=== PATIENT | female | born 1945 | race Caucasian/White ===

== ENCOUNTER → 2016-04-01 | Outpatient (CLI) | payer MEDICARE, MEDICAID ==
[~2016-04-01] MED LIST: ALBU18 IN; ASPI81CH43; BENA40TA2; CLON0.3D4 PO; CYCL0.05 EACHEYE; DICY20TA66 PO; DONETAB5 PO; FAMO-12 PO; GABA250S2 PO; GLIP-115 PO; ISO20T PO; METO200T29; MONT10TA34 PO; NAP500T PO; NITR0.4S29 SL; NORT25CA PO; OMEP20TA44; OYST500T48 OR; PANT1INJ3 PO; SIMV-8 PO; TRIA37.575 PO; VERA1TAB10 PO
[2016-04-01 13:29] LABS: Basophils # (auto) 0 uL; DEFINITIVE VIEW TRANSMISSION
[2016-04-01 13:42] LABS: Basophils % (auto) 0.4 % (0.0-2.0); Eosinophils # (auto) 0.3 uL; Eosinophils % (auto) 3.9 % (0.0-7.0); Hematocrit 34.8 % (36.0-46.0); Hemoglobin 10.8 g/dL (12.2-16.2); Lymphocytes # (auto) 2.1 uL; Lymphocytes % (auto) 24.9 % (10.0-50.0); Mean Corpuscular Hemoglobin 23.8 pg (28.0-32.0); Mean Corpuscular Hgb Conc. 31.1 g/dL (32.0-36.0); Mean Corpuscular Volume 76.6 fL (80.0-100.0); Mean Platelet Volume 10.5 fL (7.4-10.4); Monocytes # (auto) 0.6 uL; Monocytes % (auto) 6.7 % (0.0-12.0); Neutrophils # (auto) 5.3 uL; Neutrophils % (auto) 64.1 % (37.0-80.0); Platelet Count (auto) 230 10^3/uL (140-450); White Blood Cell 8.3 10^3/uL (4.4-10.8)
[2016-04-01 13:59] LABS: Albumin 3.4 g/dL (3.4-5.0); BUN/Creatinine Ratio 14.5; Bilirubin, Total 0.3 mg/dL (0.2-1.0); Calcium 9.8 mg/dL (8.5-10.1); Potassium 4.1 mmol/L (3.5-5.1); Total Protein 7.3 g/dL (6.4-8.2)
[2016-04-01 14:01] LABS: Red Cell Distribution Width 22.1 % (11.6-16.0)
[2016-04-01 14:23] LABS: Anisocytosis Slight; Ovalocytes FEW; Platelet Estimate Adequate
== END | disposition home or self-care (01) ==
LOC: LAB 12:54
PROVIDERS: ATTEND Internal Medicine
DX: C18.9 Malignant neoplasm of colon, unspecified (principal)
CPT/HCPCS: 36415; 80053; 82378; 83540; 83550; 83615; 85025; 85049

== ENCOUNTER → 2016-06-20 | Day surgery (SDC) | payer MEDICARE, MEDICAID ==
[2016-06-16 15:08] LABS: Basophils # (auto) 0 uL; Basophils % (auto) 0.5 % (0.0-2.0); DEFINITIVE VIEW TRANSMISSION; Eosinophils # (auto) 0.3 uL; Eosinophils % (auto) 3.1 % (0.0-7.0); Hematocrit 35.7 % (36.0-46.0); Hemoglobin 11.4 g/dL (12.2-16.2); Lymphocytes # (auto) 2.2 uL; Lymphocytes % (auto) 26.4 % (10.0-50.0); Mean Corpuscular Hemoglobin 23.5 pg (28.0-32.0); Mean Corpuscular Volume 73.3 fL (80.0-100.0); Mean Platelet Volume 9.5 fL (7.4-10.4); Monocytes # (auto) 0.6 uL; Monocytes % (auto) 7.6 % (0.0-12.0); Neutrophils # (auto) 5.2 uL; Neutrophils % (auto) 62.4 % (37.0-80.0); Platelet Count (auto) 227 10^3/uL (140-450); Red Cell Distribution Width 18.8 % (11.6-16.0); White Blood Cell 8.3 10^3/uL (4.4-10.8)
[2016-06-16 15:18] LABS: INR 0.99 (0.9-1.15); Partial Thromboplastin Time 29.6 sec (22.64-33.71); Prothrombin Time 10.7 sec (9.37-12.3)
[2016-06-20] MEDS: MIDAZOLAM HCL 5 MG/ML-1ML VIAL ONE ×3 (10:07→10:17)
[2016-06-20] MEDS: fentaNYL CITRATE 100 MCG/2 ML VL ONE ×3 (10:07→10:17)
[2016-06-20 11:05] VITALS: BP 139/73
== END | disposition home or self-care (01) ==
LOC: GI 09:06
PROVIDERS: ATTEND Internal Medicine Gastroenterology
DX: Z12.11 Encounter for screening for malignant neoplasm of colon (principal); K64.8 Other hemorrhoids; Z85.048 Personal history of other malignant neoplasm of rectum, rectosigmoid junction, and anus; I20.9 Angina pectoris, unspecified; I50.9 Heart failure, unspecified; J44.9 Chronic obstructive pulmonary disease, unspecified; J45.909 Unspecified asthma, uncomplicated; Z90.710 Acquired absence of both cervix and uterus; E11.9 Type 2 diabetes mellitus without complications; F41.9 Anxiety disorder, unspecified; B19.10 Unspecified viral hepatitis B without hepatic coma
CPT/HCPCS: 36415; 85025; 85610; 85730; G0105; 45378; 82962; J2250

== ENCOUNTER → 2016-07-28 | Outpatient (CLI) | payer MEDICARE, MEDICAID ==
[2016-07-28 16:35] LABS: Albumin 3.5 g/dL (3.4-5.0); BUN/Creatinine Ratio 15.5; Bilirubin, Total 0.2 mg/dL (0.2-1.0); Calcium 9.3 mg/dL (8.5-10.1); Total Protein 7.4 g/dL (6.4-8.2)
[2016-07-28 16:57] LABS: Basophils # (auto) 0 uL; Basophils % (auto) 0.4 % (0.0-2.0); DEFINITIVE VIEW TRANSMISSION; Eosinophils # (auto) 0.2 uL; Eosinophils % (auto) 2.4 % (0.0-7.0); Hematocrit 38.8 % (36.0-46.0); Hemoglobin 12.4 g/dL (12.2-16.2); Lymphocytes # (auto) 2.5 uL; Mean Corpuscular Hemoglobin 23.9 pg (28.0-32.0); Mean Corpuscular Hgb Conc. 31.9 g/dL (32.0-36.0); Mean Platelet Volume 9.3 fL (7.4-10.4); Monocytes # (auto) 0.6 uL; Neutrophils # (auto) 4.3 uL; Neutrophils % (auto) 56.2 % (37.0-80.0); Platelet Count (auto) 269 10^3/uL (140-450); Red Cell Distribution Width 19.8 % (11.6-16.0); White Blood Cell 7.6 10^3/uL (4.4-10.8)
[2016-07-28 18:08] LABS: Anisocytosis Moderate; Platelet Estimate Adequate
[2016-07-28 18:09] LABS: Hypochromia Slight
[2016-07-28 18:13] LABS: Ovalocytes FEW; Tear Drop Cells FEW
== END | disposition home or self-care (01) ==
LOC: LAB 15:48
PROVIDERS: ATTEND Internal Medicine
DX: C18.9 Malignant neoplasm of colon, unspecified (principal)
CPT/HCPCS: 36415; 80053; 82378; 83540; 83615; 85025

== ENCOUNTER 2018-03-28 11:24 | Emergency (ER) | payer MEDICARE, MEDICAID ==
[~2018-03-28] VITALS: Ht 154.9 cm; Wt 83.9 kg
[~2018-03-28 11:24] MED LIST changes: -BENA40TA2; +BENA40TA7; -METO200T29; +METO200T42; +TRIA37.55 PO; -TRIA37.575 PO
[2018-03-28 12:10] LABS: Basophils # (auto) 0 uL; Eosinophils # (auto) 0.2 uL; Hematocrit 39.1 % (36.0-46.0); Monocytes # (auto) 0.5 uL; Nucleated Red Blood Cells % 0.1 %; Platelet Count (auto) 201 10^3/uL (140-450)
[2018-03-28 12:12] LABS: Basophils % (auto) 0.3 % (0.0-2.0); Eosinophils % (auto) 2.7 % (0.0-7.0); Hemoglobin 12.9 g/dL (12.2-16.2); Lymphocytes # (auto) 1.6 uL; Lymphocytes % (auto) 18.6 % (10.0-50.0); Mean Corpuscular Hemoglobin 25.6 pg (28.0-32.0); Mean Corpuscular Hgb Conc. 32.9 g/dL (32.0-36.0); Mean Corpuscular Volume 77.8 fL (80.0-100.0); Monocytes % (auto) 5.6 % (0.0-12.0); Neutrophils # (auto) 6.2 uL; Neutrophils % (auto) 72.8 % (37.0-80.0); Red Blood Cells 5.03 10^6/uL (4.0-5.20); Red Cell Distribution Width 14.5 % (11.8-14.3); White Blood Cell 8.5 10^3/uL (4.4-10.8)
[2018-03-28 12:46] LABS: Alanine Aminotransferase 18 U/L (13-56); Albumin 3.5 g/dL (3.4-5.0); Anion Gap 7 (5-15); Blood Urea Nitrogen 13 mg/dL (7-18); Calcium 9.2 mg/dL (8.5-10.1); Carbon Dioxide 27 mmol/L (21-32); Chloride 102 mmol/L (98-107); Glucose 193 mg/dL (74-106); Potassium 3.6 mmol/L (3.5-5.1); Sodium 136 mmol/L (136-145)
[2018-03-28 12:51] LABS: Alkaline Phosphatase 78 U/L (45-117); Aspartate Aminotransferase 14 U/L (15-37); BUN/Creatinine Ratio 13.8; Bilirubin, Total 0.3 mg/dL (0.2-1.0); GFR African American 75 mL/min; GFR Non-African American 62 mL/min; Total Protein 7.7 g/dL (6.4-8.2)
[2018-03-28 13:35] LABS: Urine Bacteria FEW /hpf (None Seen); Urine Blood Negative /uL (Negative); Urine WBC 20 /hpf (0 - 5)
[2018-03-28] MEDS ORDERED: DEXTROSE (50%) 50ML SYRG IV ONE (18:30)
[2018-03-28 22:11] VITALS: BP 186/97
== END 2018-03-28 22:36 | disposition home or self-care (01) ==
LOC: ER 11:24
DX: K64.8 Other hemorrhoids (principal); N39.0 Urinary tract infection, site not specified; I25.10 Atherosclerotic heart disease of native coronary artery without angina pectoris; I11.0 Hypertensive heart disease with heart failure; I50.9 Heart failure, unspecified; J44.9 Chronic obstructive pulmonary disease, unspecified; E11.9 Type 2 diabetes mellitus without complications; E78.5 Hyperlipidemia, unspecified; Z79.82 Long term (current) use of aspirin; Z79.899 Other long term (current) drug therapy; Z79.84 Long term (current) use of oral hypoglycemic drugs
CPT/HCPCS: 36415; 74176; 80053; 81001; 82962; 84484; 85025; 94761

== ENCOUNTER → 2018-04-09 | Day surgery (SDC) | payer MEDICARE, MEDICAID ==
[2018-04-05 15:55] LABS: Basophils # (auto) 0 uL; Basophils % (auto) 0.4 % (0.0-2.0); Eosinophils # (auto) 0.2 uL; Hemoglobin 12.1 g/dL (12.2-16.2); Lymphocytes # (auto) 1.5 uL; Lymphocytes % (auto) 21.2 % (10.0-50.0); Monocytes # (auto) 0.5 uL; Neutrophils # (auto) 4.9 uL; Neutrophils % (auto) 68.2 % (37.0-80.0); Red Blood Cells 4.87 10^6/uL (4.0-5.20); White Blood Cell 7.2 10^3/uL (4.4-10.8)
[2018-04-05 15:57] LABS: INR 0.96 (0.9-1.15); Partial Thromboplastin Time 30.8 sec (23.78-33.04); Prothrombin Time 10.3 sec (9.27-12.13)
[2018-04-05 15:59] LABS: Eosinophils % (auto) 3.3 % (0.0-7.0); Hematocrit 37.8 % (36.0-46.0); Mean Corpuscular Hemoglobin 24.8 pg (28.0-32.0); Mean Corpuscular Hgb Conc. 31.9 g/dL (32.0-36.0); Mean Corpuscular Volume 77.5 fL (80.0-100.0); Monocytes % (auto) 6.9 % (0.0-12.0); Platelet Count (auto) 191 10^3/uL (140-450); Red Cell Distribution Width 15.1 % (11.8-14.3)
[~2018-04-09] VITALS: Ht 154.9 cm; Wt 83.9 kg
[~2018-04-09] MED LIST changes: +CHOL20009 PO; +CLON0.1T PO; -CLON0.3D4 PO; +CLOP75TA41 PO; +DOCU-94 PO; -FAMO-12 PO; +FLUT250M2 INH; +FURO20TA3 PO; -GABA250S2 PO; -ISO20T PO; +LABETALOL HCL 5 MG/ML ML 20ML VIAL IV ONE; +LACT10SO3 PO; +LIDOCAINE VISCOUS 2% 15ML UD ONE; +METO-159 PO; -METO200T42; -NAP500T PO; -NITR0.4S29 SL; -OMEP20TA44; +POTA1TAB61 PO; +RIZA5TAB14 OR; +SITA100T7 PO; +SODIUM CHLORIDE LOCK 10 ML ONE; -TRIA37.55 PO; -VERA1TAB10 PO; +VERA1TAB9 PO; +diphenhdrAMINE HCL 50 MG/1 ML VL ONE
[2018-04-09] MEDS: LABETALOL HCL 5 MG/ML 4ML SYRINGE IV ONE ×3 (09:34→10:13)
[2018-04-09] MEDS: MIDAZOLAM HCL 5 MG/ML-1ML VIAL ONE ×3 (09:52→10:01)
[2018-04-09] MEDS: fentaNYL CITRATE 100 MCG/2 ML VL ONE ×3 (09:52→10:01)
[2018-04-09 11:19] VITALS: BP 151/83
== END | disposition home or self-care (01) ==
LOC: GI 08:32
PROVIDERS: ATTEND Internal Medicine Gastroenterology
DX: K62.6 Ulcer of anus and rectum (principal); K64.8 Other hemorrhoids; K29.50 Unspecified chronic gastritis without bleeding; I20.9 Angina pectoris, unspecified; I50.9 Heart failure, unspecified; J44.9 Chronic obstructive pulmonary disease, unspecified; E66.9 Obesity, unspecified; E11.9 Type 2 diabetes mellitus without complications; F41.9 Anxiety disorder, unspecified; F10.99 Alcohol use, unspecified with unspecified alcohol-induced disorder; K21.9 Gastro-esophageal reflux disease without esophagitis; Z85.038 Personal history of other malignant neoplasm of large intestine; Z68.35 Body mass index [BMI] 35.0-35.9, adult; Z90.710 Acquired absence of both cervix and uterus; Z95.1 Presence of aortocoronary bypass graft; Z82.49 Family history of ischemic heart disease and other diseases of the circulatory system; Z88.0 Allergy status to penicillin; Z83.3 Family history of diabetes mellitus; Z79.1 Long term (current) use of non-steroidal anti-inflammatories (NSAID); Z79.82 Long term (current) use of aspirin; Z79.899 Other long term (current) drug therapy; Z96.641 Presence of right artificial hip joint
CPT/HCPCS: 36415; 43239; 45380; 82962; 85025; 85610; 85730; 88305; 88342; A6257; J2250; J3010; J3490; J7030; 99153; G0500

== ENCOUNTER → 2018-04-17 | Outpatient (CLI) | payer MEDICARE, MEDICAID ==
[~2018-04-17] MED LIST changes: -LABETALOL HCL 5 MG/ML ML 20ML VIAL IV ONE; -LIDOCAINE VISCOUS 2% 15ML UD ONE; -SODIUM CHLORIDE LOCK 10 ML ONE; -diphenhdrAMINE HCL 50 MG/1 ML VL ONE
== END | disposition home or self-care (01) ==
LOC: LAB 12:06
PROVIDERS: ATTEND Surgery
DX: C18.9 Malignant neoplasm of colon, unspecified (principal)
CPT/HCPCS: 82378

== ENCOUNTER → 2018-04-23 | Outpatient (CLI) | payer MEDICARE, MEDICAID | END | disposition home or self-care (01) | LOC: LAB 15:51 | PROVIDERS: ATTEND Surgery | DX: C18.9 Malignant neoplasm of colon, unspecified (principal) | CPT/HCPCS: 36415; 82565; 84520 ==

== ENCOUNTER → 2018-04-30 | Outpatient (CLI) | payer MEDICARE, MEDICAID ==
[2018-04-30 14:52] LABS: BUN/Creatinine Ratio 17.3; Calcium 8.8 mg/dL (8.5-10.1); Potassium 3.9 mmol/L (3.5-5.1)
[2018-04-30 15:25] LABS: Basophils # (auto) 0 uL; Basophils % (auto) 0.4 % (0.0-2.0); Eosinophils # (auto) 0.2 uL; Mean Corpuscular Hgb Conc. 32.4 g/dL (32.0-36.0); Monocytes # (auto) 0.6 uL; Red Blood Cells 4.79 10^6/uL (4.0-5.20)
[2018-04-30 15:28] LABS: INR 0.96 (0.9-1.15); Prothrombin Time 10.3 sec (9.27-12.13)
[2018-04-30 15:29] LABS: Eosinophils % (auto) 2.7 % (0.0-7.0); Hematocrit 36.7 % (36.0-46.0); Hemoglobin 11.9 g/dL (12.2-16.2); Lymphocytes % (auto) 25.1 % (10.0-50.0); Mean Corpuscular Hemoglobin 24.8 pg (28.0-32.0); Mean Corpuscular Volume 76.7 fL (80.0-100.0); Monocytes % (auto) 7.7 % (0.0-12.0); Neutrophils # (auto) 5.2 uL; Neutrophils % (auto) 64.1 % (37.0-80.0); Platelet Count (auto) 198 10^3/uL (140-450); Red Cell Distribution Width 15.2 % (11.8-14.3); White Blood Cell 8.1 10^3/uL (4.4-10.8)
== END | disposition home or self-care (01) ==
LOC: LAB 14:05
PROVIDERS: ATTEND Internal Medicine
DX: C18.9 Malignant neoplasm of colon, unspecified (principal); E11.9 Type 2 diabetes mellitus without complications; I11.0 Hypertensive heart disease with heart failure; I50.9 Heart failure, unspecified; J44.9 Chronic obstructive pulmonary disease, unspecified; Z79.899 Other long term (current) drug therapy
CPT/HCPCS: 36415; 80048; 85025; 85610; 85730

== ENCOUNTER → 2018-05-02 | Outpatient (CLI) | payer MEDICARE, MEDICAID ==
[~2018-05-02] MED LIST changes: +MIDAZOLAM HCL 1MG/1ML-2 ML VIAL IV ONE; +fentaNYL CITRATE 100 MCG/2 ML VL IV ONE
--- NOTE | 2018-05-02 10:50 | NUR ---
RISKS OF BIOPSY EXPLAINED TO DAUGHTER. ABEL WHITAKER FROM DR CONNELLY'S OFFICE ALSO HERE EXPLAINING THE BENEFITS AND RISKS. PT'S DAUGHTER REFUSING BIOPSY AT THIS TIME.
== END | disposition home or self-care (01) ==
LOC: CT 10:04
PROVIDERS: ATTEND Internal Medicine
DX: Z53.29 Procedure and treatment not carried out because of patient's decision for other reasons (principal); C18.9 Malignant neoplasm of colon, unspecified
CPT/HCPCS: J2250; J3010

== ENCOUNTER 2018-07-19 18:31 | Emergency (ER) | payer MEDICARE, MEDICAID ==
[~2018-07-19] VITALS: Ht 154.9 cm; Wt 78.9 kg
[~2018-07-19 18:31] MED LIST changes: -MIDAZOLAM HCL 1MG/1ML-2 ML VIAL IV ONE; -fentaNYL CITRATE 100 MCG/2 ML VL IV ONE
[2018-07-19] MEDS ORDERED: MORPHINE SULFATE 4 MG/ML SYR/VIAL IV ONE (19:15)
[2018-07-19] MEDS ORDERED: SODIUM CHLORIDE 0.9% 1,000 ML IV ONE (19:15)
[2018-07-19] MEDS ORDERED: ALBUTEROL SULF 2.5 MG/0.5ML(0.5%) NEB SOLN NEB ONE (19:15)
[2018-07-19] MEDS ORDERED: ONDANSETRON HCL 4 MG/2 ML VIAL IV ONE (19:15)
[2018-07-19] MEDS ORDERED: IPRATROPIUM BROM 0.5 MG/2.5ML INH SOL NEB ONE (19:15)
[2018-07-19 20:06] LABS: INR 1.61 (0.9-1.15); Partial Thromboplastin Time 30.4 sec (23.78-33.04); Prothrombin Time 16.8 sec (9.27-12.13)
[2018-07-19 20:10] LABS: Albumin 1.9 g/dL (3.4-5.0); Calcium 7.8 mg/dL (8.5-10.1); Potassium 3.3 mmol/L (3.5-5.1)
[2018-07-19 20:11] LABS: Basophils # (auto) 0 uL; Basophils % (auto) 0.3 % (0.0-2.0); Eosinophils # (auto) 0.1 uL; Eosinophils % (auto) 0.8 % (0.0-7.0); Lymphocytes # (auto) 0.3 uL; Lymphocytes % (auto) 4.3 % (10.0-50.0); Monocytes # (auto) 0.8 uL; Monocytes % (auto) 10.5 % (0.0-12.0); Neutrophils # (auto) 6.3 uL; Neutrophils % (auto) 84.1 % (37.0-80.0); Nucleated Red Blood Cells % 0.4 %; White Blood Cell 7.5 10^3/uL (4.4-10.8)
[2018-07-19 20:12] LABS: Hematocrit 31.4 % (36.0-46.0); Mean Corpuscular Hemoglobin 25.1 pg (28.0-32.0); Mean Corpuscular Hgb Conc. 31.9 g/dL (32.0-36.0); Mean Corpuscular Volume 78.5 fL (80.0-100.0); Platelet Count (auto) 205 10^3/uL (140-450); Red Blood Cells 3.99 10^6/uL (4.0-5.20); Red Cell Distribution Width 25.3 % (11.8-14.3)
[2018-07-19 20:13] LABS: BUN/Creatinine Ratio 17.9; Bilirubin, Total 0.4 mg/dL (0.2-1.0); Total Protein 5.1 g/dL (6.4-8.2)
[2018-07-19 23:20] VITALS: BP 119/68
== END 2018-07-19 23:58 | disposition home or self-care (01) ==
LOC: ER 18:33
DX: K52.9 Noninfective gastroenteritis and colitis, unspecified (principal); C18.9 Malignant neoplasm of colon, unspecified; I25.810 Atherosclerosis of coronary artery bypass graft(s) without angina pectoris; J44.9 Chronic obstructive pulmonary disease, unspecified; E78.5 Hyperlipidemia, unspecified; I11.0 Hypertensive heart disease with heart failure; I50.9 Heart failure, unspecified; F17.210 Nicotine dependence, cigarettes, uncomplicated; Z79.82 Long term (current) use of aspirin; Z79.84 Long term (current) use of oral hypoglycemic drugs; Z79.899 Other long term (current) drug therapy; Z95.1 Presence of aortocoronary bypass graft; Z90.710 Acquired absence of both cervix and uterus
CPT/HCPCS: 36415; 74176; 80053; 82150; 83605; 83690; 83735; 83880; 85025; 85610; 85730; 93005; 94640; 96361; 96374; 96375; 99284; J2270; J2405; J7030; J7611; J7644

== ENCOUNTER 2018-09-10 10:38 | Day surgery (SDC) | payer MEDICARE, MEDICAID ==
[2018-09-04 14:41] LABS: Basophils # (auto) 0.1 uL; Basophils % (auto) 0.7 % (0.0-2.0); Eosinophils # (auto) 0.1 uL; Eosinophils % (auto) 1.2 % (0.0-7.0); Hematocrit 33.9 % (36.0-46.0); Hemoglobin 10.7 g/dL (12.2-16.2); Lymphocytes # (auto) 1.2 uL; Lymphocytes % (auto) 11.4 % (10.0-50.0); Mean Corpuscular Hemoglobin 27.9 pg (28.0-32.0); Mean Corpuscular Hgb Conc. 31.7 g/dL (32.0-36.0); Monocytes # (auto) 0.7 uL; Monocytes % (auto) 6.6 % (0.0-12.0); Neutrophils # (auto) 8.2 uL; Neutrophils % (auto) 80.1 % (37.0-80.0); Platelet Count (auto) 201 10^3/uL (140-450); Red Blood Cells 3.85 10^6/uL (4.0-5.20); Red Cell Distribution Width 17.9 % (11.8-14.3); White Blood Cell 10.3 10^3/uL (4.4-10.8)
[2018-09-04 14:55] LABS: INR 1.15 (0.9-1.15); Partial Thromboplastin Time 27.8 sec (23.64-32.05)
[~2018-09-10] VITALS: Ht 154.9 cm; Wt 78.0 kg
[~2018-09-10 10:38] MED LIST changes: -DICY20TA66 PO; +METO10TA3 PO; -POTA1TAB61 PO
[2018-09-10] MEDS ORDERED: SODIUM CHLORIDE LOCK 10 ML ONE (11:31)
[2018-09-10] MEDS: fentaNYL CITRATE 100 MCG/2 ML VL ONE ×2 (11:32→11:38)
[2018-09-10] MEDS ORDERED: diphenhdrAMINE HCL 50 MG/1 ML VL ONE (11:32)
[2018-09-10] MEDS: MIDAZOLAM HCL 5 MG/ML-1ML VIAL ONE ×2 (11:32→11:38)
[2018-09-10 12:04] VITALS: BP 150/70
== END 2018-09-10 12:28 | disposition home or self-care (01) ==
LOC: GI 10:38
PROVIDERS: ATTEND Internal Medicine Gastroenterology
DX: Z08 Encounter for follow-up examination after completed treatment for malignant neoplasm (principal); K62.6 Ulcer of anus and rectum; K64.8 Other hemorrhoids; J45.909 Unspecified asthma, uncomplicated; E78.5 Hyperlipidemia, unspecified; G30.9 Alzheimer's disease, unspecified; F02.80 Dementia in other diseases classified elsewhere, unspecified severity, without behavioral disturbance, psychotic disturbance, mood disturbance, and anxiety; E03.9 Hypothyroidism, unspecified; E11.9 Type 2 diabetes mellitus without complications; I10 Essential (primary) hypertension; K21.9 Gastro-esophageal reflux disease without esophagitis; Z92.3 Personal history of irradiation; Z85.048 Personal history of other malignant neoplasm of rectum, rectosigmoid junction, and anus; Z92.21 Personal history of antineoplastic chemotherapy; Z79.899 Other long term (current) drug therapy; Z79.01 Long term (current) use of anticoagulants; Z98.890 Other specified postprocedural states
CPT/HCPCS: 36415; 45380; 82962; 85025; 85610; 85730; J1200; J2250; J3010; J7030; 99152

== ENCOUNTER → 2018-09-27 | Outpatient (CLI) | payer MEDICARE ==
[2018-09-27 16:34] LABS: Basophils # (auto) 0 uL; Basophils % (auto) 0.3 % (0.0-2.0); Eosinophils # (auto) 0.1 uL; Eosinophils % (auto) 1.9 % (0.0-7.0); Hematocrit 31.9 % (36.0-46.0); Lymphocytes % (auto) 15.9 % (10.0-50.0); Mean Corpuscular Hemoglobin 27.2 pg (28.0-32.0); Mean Corpuscular Hgb Conc. 31.5 g/dL (32.0-36.0); Mean Corpuscular Volume 86.4 fL (80.0-100.0); Monocytes # (auto) 0.4 uL; Monocytes % (auto) 7.1 % (0.0-12.0); Neutrophils # (auto) 4.6 uL; Neutrophils % (auto) 74.8 % (37.0-80.0); Platelet Count (auto) 234 10^3/uL (140-450); Red Blood Cells 3.69 10^6/uL (4.0-5.20); Red Cell Distribution Width 14.6 % (11.8-14.3); White Blood Cell 6.1 10^3/uL (4.4-10.8)
[2018-09-27 16:47] LABS: Albumin 1.9 g/dL (3.4-5.0); Calcium 8.1 mg/dL (8.5-10.1); Potassium 3.7 mmol/L (3.5-5.1)
[2018-09-27 16:50] LABS: BUN/Creatinine Ratio 22.4; Bilirubin, Total 0.1 mg/dL (0.2-1.0); Total Protein 5.4 g/dL (6.4-8.2)
== END | disposition home or self-care (01) ==
LOC: LAB 16:20
PROVIDERS: ATTEND Internal Medicine Hematology & Oncology
DX: C18.9 Malignant neoplasm of colon, unspecified (principal)
CPT/HCPCS: 36415; 80053; 82378; 83615; 85025

== ENCOUNTER 2020-12-31 10:27 | Day surgery (SDC) | payer MEDICARE, MEDICAID ==
[2020-12-29 12:23] LABS: Basophils # (auto) 0 10 ^3/uL (0-0.2); Basophils % (auto) 0.5 % (0.0-2.0); Eosinophils # (auto) 0.1 10 ^3/uL (0-0.8); Eosinophils % (auto) 1.1 % (0.0-7.0); Hematocrit 34.9 % (36.0-46.0); Hemoglobin 11.3 g/dL (12.2-16.2); Lymphocytes # (auto) 0.9 10 ^3/uL (0.4-5.4); Lymphocytes % (auto) 13.4 % (10.0-50.0); Mean Corpuscular Hemoglobin 25.9 pg (28.0-32.0); Mean Corpuscular Hgb Conc. 32.3 g/dL (32.0-36.0); Mean Corpuscular Volume 80.3 fL (80.0-100.0); Monocytes # (auto) 0.6 10 ^3/uL (0-1.3); Monocytes % (auto) 8.6 % (0.0-12.0); Neutrophils # (auto) 5.2 10 ^3/uL (1.6-8.6); Neutrophils % (auto) 76.4 % (37.0-80.0); Red Blood Cells 4.35 10^6/uL (4.0-5.20); Red Cell Distribution Width 14.2 % (11.8-14.3); White Blood Cell 6.9 10^3/uL (4.4-10.8)
[2020-12-29 12:41] LABS: Partial Thromboplastin Time 22.8 sec (23.6-33.0)
[2020-12-29 12:54] LABS: Albumin 2.9 g/dL (3.4-5.0); BUN/Creatinine Ratio 8.6; Bilirubin, Total 0.3 mg/dL (0.2-1.0); Total Protein 6.7 g/dL (6.4-8.2)
[2020-12-29 13:55] LABS: Potassium 2.8 mmol/L (3.5-5.1)
[~2020-12-31] VITALS: Ht 152.4 cm; Wt 67.1 kg
[~2020-12-31 10:27] MED LIST changes: +AMIO200T33 PO; +AMLO-496 PO; -ASPI81CH43; -BENA40TA7; +BENA40TA8; -CLOP75TA41 PO; +DICY10CA PO; -FURO20TA3 PO; +GABA300C10 PO; -GLIP-115 PO; +GLIP5TAB12 PO; +HYDR25TA5 PO; +HYDR50TA15 PO; -LACT10SO3 PO; -METO10TA3 PO; +MIRT1TAB38 PO; +MONT-8 PO; -MONT10TA34 PO; -NORT25CA PO; +POTA-220 PO; +RIVSET PO; -RIZA5TAB14 OR; +RIZA5TAB35 OR; -SITA100T7 PO; -VERA1TAB9 PO
[2020-12-31] MEDS ORDERED: diphenhdrAMINE HCL 50 MG/1 ML VL ONE (11:29)
[2020-12-31] MEDS ORDERED: LIDOCAINE VISCOUS 2% 15ML UD ONE (11:29)
[2020-12-31] MEDS: MIDAZOLAM HCL 5 MG/ML-1ML VIAL ONE ×2 (12:47→12:54)
[2020-12-31] MEDS: fentaNYL CITRATE 100 MCG/2 ML VL ONE ×2 (12:47→12:54)
[2020-12-31 13:35] VITALS: BP 190/94
== END 2020-12-31 13:55 | disposition home or self-care (01) ==
LOC: GI 10:27
PROVIDERS: ATTEND Internal Medicine Gastroenterology
DX: K62.5 Hemorrhage of anus and rectum (principal); K31.89 Other diseases of stomach and duodenum; K62.89 Other specified diseases of anus and rectum; K63.89 Other specified diseases of intestine; D64.9 Anemia, unspecified; I10 Essential (primary) hypertension; E11.9 Type 2 diabetes mellitus without complications; I49.9 Cardiac arrhythmia, unspecified; J44.9 Chronic obstructive pulmonary disease, unspecified; F41.9 Anxiety disorder, unspecified; I25.798 Atherosclerosis of other coronary artery bypass graft(s) with other forms of angina pectoris; Z90.710 Acquired absence of both cervix and uterus; Z85.038 Personal history of other malignant neoplasm of large intestine; Z98.890 Other specified postprocedural states
CPT/HCPCS: 36415; 43239; 45380; 80053; 82962; 84132; 85025; 85610; 85730; 88305; 88342; J1200; J2250; J3010; U0003; G0500